=== PATIENT | male | born 1995 | race Caucasian/White ===

== ENCOUNTER 2021-08-21 17:32 | Emergency (ER) | payer BC, SELFPAY ==
[2021-08-21 17:54] VITALS: BP 118/75; PULSE 84; RESP 16; TEMP 37.3; O2SAT 99; BMI 19.6
[2021-08-21 18:05] VITALS: BP 118/75; PULSE 84; RESP 19; TEMP 37.2
[2021-08-21 18:05] LABS: UTC Strep Screen (Rapid) Negative (Negative)
[2021-08-21 18:16] LABS: Adenovirus,PCR Not Detected (NotDetected); Bordetella Pertussis Not Detected (NotDetected); Chlamydophila Pneumoniae, PCR Not Detected (NotDetected); Coronavirus 229E Not Detected (NotDetected); Coronavirus NL63 Not Detected (NotDetected); Coronavirus OC43 Not Detected (NotDetected); Coronovirus HKU1,PCR Not Detected (NotDetected); Human Metapneumovirus Not Detected (NotDetected); Influenza A, PCR Not Detected (NotDetected); Influenza AH1, 2009 Not Detected (NotDetected); Influenza AH1, PCR Not Detected (NotDetected); Influenza AH3,PCR Not Detected (NotDetected); Influenza B, PCR Not Detected (NotDetected); Mycoplasma Pneumoniae, PCR Not Detected (NotDetected); Parainfluenza 1, PCR Not Detected (NotDetected); Parainfluenza 2, PCR Not Detected (NotDetected); Parainfluenza 3, PCR Not Detected (NotDetected); Parainfluenza 4, PCR Not Detected (NotDetected); Respiratory Syncytial Virus Not Detected (NotDetected); Rhinovirus/Enterovirus Not Detected (NotDetected)
--- NOTE | 2021-08-21 18:22 | HMH.EDUTC ---
[facility] [place] Impression: Bronchitis, Viral syndrome Pharyngitis Qualifiers: Pharyngitis/tonsillitis etiology: unspecified etiology Qualified Code(s): J02.9 - Acute pharyngitis, unspecified Disposition: Home, Self-Care Condition on Discharge: Good Instructions: DI for Pharyngitis/Tonsillopharyngitis -- Adult, DI for Acute Bronchitis, DI for COVID-19 (Suspected or Confirmed ), Preventing the Spread of Coronavirus Discharge Instructions Additional Instructions: Drink plenty of fluids. Take tylenol or ibuprofen for pain or fever. Take the medications as directed. Follow up with your regular doctor. GO TO THE ER FOR ANY WORSENING SYMPTOMS Quarantine until you know the results of your covid-19 test. If it is positive, the health department should call you and give you further instructions about your length of Quarantine and other things. Notify your school or workplace of your results and follow their instructions regarding return to work/school. Prescriptions: methylPREDNISolone [Medrol] 4 mg PO DIRECTED 6 Days #21 packet Transmission Status: Received by [facility] Promethazine HCl [Phenergan 25mg tab] 25 mg PO Q6H PRN #12 tab PRN Reason: Nausea And Vomiting Transmission Status: Received by [facility] Azithromycin [Z-Gerardo 250mg Tab*] 250 mg PO UD DOSE PK #6 tab Transmission Status: Received by [facility] Referrals: Provider,Referral, [Primary Care Provider] - Forms: Work/School Release Time of Disposition: 18:49 Medical Decision Making - Medical Records Medical records reviewed: No: I reviewed the patient's medical records. - [place] Inquiry Pt receiving controlled substance: No Vital Signs: 08/21/21 17:54 08/21/21 18:05 Temperature 99.1 F 99 F Temperature Source Oral Pulse Rate 84 Pulse Rate [Left] 84 Respiratory Rate 16 19 Blood Pressure 118/75 Blood Pressure [Right Arm] 118/75 Blood Pressure Mean [Right Arm] 89 02 Sat by Pulse Oximetry 99 - Lab Data Lab results reviewed: Yes: I reviewed the patient's lab results. Lab Results 08/21/21 17:55: Chlamy pneumoniae PCR Not detected, Adenovirus (PCR) Not detected, B. pertussis DNA (PCR) Not detected, Coronavirus OC43 (PCR) Not detected, Coronavirus HKU1 (PCR) Not detected, Coronavirus 229E (PCR) Not detected, SARS-CoV-2 (PCR) Detected A, Coronavirus NL63 (PCR) Not detected, Human Metapneumovir PCR Not detected, Influenza A (H1) PCR Not detected, Influ A (H1N1/09) PCR Not detected, Influenza A (H3) PCR Not detected, Influenza Type A (PCR) Not detected, Influenza Type B (PCR) Not detected, M. pneumoniae (PCR) Not detected, Parainfluenza 1 (PCR) Not detected, Parainfluenza 2 (PCR) Not detected, Parainfluenza 3 (PCR) Not detected, Parainfluenza 4 (PCR) Not detected, RSV (PCR) Not detected, Entero/Rhino (PCR) Not detected 08/21/21 17:59: Strep Scn Rapid Clinic Negative Orders (Tests/Meds): ED MEDICATIONS Discontinued Medications Generic Name Dose Route Start Last Admin Trade Name Freq PRN Reason Stop Dose Admin Sodium Chloride 1,000 mls @ 999 mls/hr 08/21/21 19:00 Sod Chlor 0.9% 1000ml Bag IV 08/21/21 20:00 .Q1H1M JULIO C Ondansetron HCl 4 mg 08/21/21 18:33 Ondansetron 4mg/2ml Vial IV 08/21/21 18:34 ONCE ONE ORDERS Category Date Time Status Chest XR 2 view (NOT portable) [XR chest 2V] Stat Exams 08/21/21 18:40 Taken Strep Screen Confirmation Routine Micro 08/21/21 17:59 [place] [facility] [place] - General Stated complaint: covid symptoms Time Seen by Provider: 08/21/21 18:22 Mode of Arrival: Ambulatory Source of Information: Patient Limitations: No Limitations HEENT Symptoms (Recalled from RN notes): Yes (sore throat) Resp Symptoms (Recalled from RN notes): Yes (productive cough) Skin Symptoms (Recalled from RN notes): No MS Symptoms (Recalled from RN notes): No Functional Status (Recalled from RN notes): na - History of Pre
--- NOTE | 2021-08-21 18:40 | XR_ITS ---
PROCEDURE INFORMATION: Exam: XR Chest Exam date and time: 08/21/2021 6:40 PM Age: 26 years old Clinical indication: Cough and fever; Patient HX: Cough, congestion, fever, smoker. No chest surgeries. TECHNIQUE: Imaging protocol: XR of the chest. Views: 2 views. COMPARISON: No relevant prior studies available. FINDINGS: Lungs: Unremarkable. No consolidation. Pleural spaces: Unremarkable. No pleural effusion. No pneumothorax. Heart/Mediastinum: Unremarkable. No cardiomegaly. Bones/joints: Mild scoliosis. IMPRESSION: No acute findings.
[2021-08-21 20:03] LABS: Coronavirus 19, PCR Detected (NotDetected)
== END 2021-08-21 19:06 | disposition home or self-care (01) ==
PROVIDERS: Emergency Provider Nurse Practitioner Family
DX: J20.9 Acute bronchitis, unspecified (principal); U07.1 COVID-19; J02.9 Acute pharyngitis, unspecified; B34.9 Viral infection, unspecified
CPT/HCPCS: 71046; 87581; 87632; 87798; 87880; 99203; C9803; G0463; J2405; U0003; U0005